=== PATIENT | female | born 1955 | race Caucasian/White ===

== ENCOUNTER → 2023-08-20 14:25 | Outpatient (REF) | payer OTHER, SELFPAY ==
[2023-08-25 14:40] LABS: Pneumococcal IgG Type 1 0.35 ug/mL; Pneumococcal IgG Type 12F 0.11 ug/mL; Pneumococcal IgG Type 14 3.17 ug/mL; Pneumococcal IgG Type 18C 0.05 ug/mL; Pneumococcal IgG Type 19F 7.84 ug/mL; Pneumococcal IgG Type 23F 0.84 ug/mL; Pneumococcal IgG Type 3 0.25 ug/mL; Pneumococcal IgG Type 4 0.73 ug/mL; Pneumococcal IgG Type 5 0.46 ug/mL; Pneumococcal IgG Type 6B 0.18 ug/mL; Pneumococcal IgG Type 7F 0.04 ug/mL; Pneumococcal IgG Type 8 0.12 ug/mL; Pneumococcal IgG Type 9N 0.14 ug/mL; Pneumococcal IgG Type 9V 0.61 ug/mL
== END ==
LOC: RAD 14:25
PROVIDERS: ATTENDING PHYSICIAN Allergy & Immunology; FAMILY PHYSICIAN Physician Assistant
DX: J18.8 Other pneumonia, unspecified organism (principal); Z87.42 Personal history of other diseases of the female genital tract; J20.9 Acute bronchitis, unspecified
CPT/HCPCS: 36415; 71046; 86317

== ENCOUNTER → 2023-09-14 08:47 | Outpatient (REF) | payer OTHER, SELFPAY ==
[2023-09-14 09:47] LABS: ALT (SGPT) 20 U/L (0-35); AST (SGOT) 19 U/L (14-36); Albumin 4.2 g/dl (3.5-5.0); Alkaline Phosphatase 128 U/L (38-126); Blood Urea Nitrogen 18 mg/dl (7-17); Carbon Dioxide 26 mmol/L (22-30); Chloride 105 mmol/L (98-107); Glucose 117 mg/dl (70-99); HDL Cholesterol 54 mg/dl; LDL Cholesterol, Calculated 111 mg/dl; Potassium 4.1 mmol/L (3.5-5.1); Sodium 138 mmol/L (135-145); Total Bilirubin 0.7 mg/dl (0.2-1.3); Total Cholesterol 192 mg/dl (50-199); Triglyceride 137 mg/dl (10-149); Very Low Density Lipoprotein 27 mg/dl (0-30); eGFR > 60.00
[2023-09-15 08:52] LABS: Glycohemoglobin (HgbA1c) 5.8 % (4.0-5.6)
== END ==
LOC: REG 08:47
PROVIDERS: ATTENDING PHYSICIAN Physician Assistant
DX: I10 Essential (primary) hypertension (principal); E78.2 Mixed hyperlipidemia; R73.09 Other abnormal glucose
CPT/HCPCS: 36415; 80053; 80061; 83036

== ENCOUNTER → 2023-11-09 14:11 | Outpatient (REF) | payer OTHER, SELFPAY | LOC: RAD 14:11 | PROVIDERS: ATTENDING PHYSICIAN Physician Assistant | DX: M25.562 Pain in left knee (principal) | CPT/HCPCS: 73564 ==

== ENCOUNTER → 2023-12-17 09:30 | Outpatient (REF) | payer OTHER, SELFPAY | LOC: MRI 3T 09:30 | PROVIDERS: ATTENDING PHYSICIAN Family Medicine | DX: M25.562 Pain in left knee (principal) | CPT/HCPCS: 73721 ==

== ENCOUNTER 2024-01-15 06:15 | Day surgery (SDC) | payer OTHER, SELFPAY ==
[2024-01-08 14:10] VITALS: BMI 31.9
[2024-01-08 14:38] LABS: Hematocrit 41.9 % (37.0-47.0); Hemoglobin 14.6 g/dL (12.0-16.0); Mean Corp Hgb Conc. 34.8 g/dL (33.0-37.0); Mean Corpuscular Hgb 33.4 pg (27.0-31.0); Mean Corpuscular Volume 95.9 fL (81.0-99.0); Mean Platelet Volume 11.3 fL (7.4-10.4); Platelet Count 220 10^3/uL (130-400); Red Blood Cell Count 4.37 10^6/uL (4.20-5.40); White Blood Cell Count 6.6 10^3/uL (4.8-10.8)
[2024-01-15] VITALS (7 sets, daily range): BP systolic 111–138; BP diastolic 66–83; BMI 31.9
[2024-01-15] MEDS: TYLENOL 1000 MG PO (06:27)
[2024-01-15] MEDS: CELEBREX 200 MG PO (06:28)
[2024-01-15] MEDS: NORMOSOL-R 1000 IV (06:29)
[2024-01-15] MEDS: MORPHINE SULFATE 1 MG IV ×4 (07:52→08:22)
== END 2024-01-15 10:01 | disposition home or self-care (01) ==
LOC: SDS 06:15
PROVIDERS: ATTENDING PHYSICIAN Specialist; FAMILY PHYSICIAN Family Medicine
DX: S83.282A Other tear of lateral meniscus, current injury, left knee, initial encounter (principal); X58.XXXA Exposure to other specified factors, initial encounter; M23.42 Loose body in knee, left knee
CPT/HCPCS: 29881; 36415; 85027; 93005

== ENCOUNTER → 2024-05-13 10:11 | Outpatient (REF) | payer OTHER, SELFPAY ==
[2024-05-13 16:15] LABS: Blood Urea Nitrogen 22 mg/dl (7-17); Calcium 9.1 mg/dl (8.4-10.2); Carbon Dioxide 24 mmol/L (22-30); Chloride 101 mmol/L (98-107); Glucose 98 mg/dl (70-99); Sodium 141 mmol/L (135-145); eGFR > 60.00
== END ==
LOC: RAD 10:11
PROVIDERS: ATTENDING PHYSICIAN Physician Assistant; FAMILY PHYSICIAN Internal Medicine Cardiovascular Disease
DX: J45.41 Moderate persistent asthma with (acute) exacerbation (principal); I50.32 Chronic diastolic (congestive) heart failure
CPT/HCPCS: 36415; 71046; 80048

== ENCOUNTER → 2024-08-17 10:05 | Outpatient (REF) | payer OTHER, SELFPAY ==
[2024-08-17 11:59] LABS: ALT (SGPT) 17 U/L (0-35); AST (SGOT) 18 U/L (14-36); Albumin 4.3 g/dl (3.5-5.0); Alkaline Phosphatase 104 U/L (38-126); Blood Urea Nitrogen 14 mg/dl (7-17); Calcium 8.9 mg/dl (8.4-10.2); Carbon Dioxide 21 mmol/L (22-30); Chloride 104 mmol/L (98-107); Glucose 97 mg/dl (70-99); HDL Cholesterol 49 mg/dl; LDL Cholesterol, Calculated 171 mg/dl; Potassium 3.7 mmol/L (3.5-5.1); Sodium 138 mmol/L (135-145); Total Bilirubin 1.1 mg/dl (0.2-1.3); Total Cholesterol 261 mg/dl (50-199); Total Protein 6.7 g/dl (6.3-8.2); Triglyceride 206 mg/dl (10-149); Very Low Density Lipoprotein 41 mg/dl (0-30); eGFR > 60.00
[2024-08-17 12:02] LABS: Glycohemoglobin (HgbA1c) 5.5 % (4.0-5.6)
[2024-08-17 12:28] LABS: TSH Reflex To Free T4 3.21 uIU/ml (0.47-4.68)
== END ==
LOC: REG 10:05
PROVIDERS: ATTENDING PHYSICIAN Physician Assistant
DX: E78.2 Mixed hyperlipidemia (principal); R73.09 Other abnormal glucose; E03.9 Hypothyroidism, unspecified
CPT/HCPCS: 36415; 80053; 80061; 83036; 84443

== ENCOUNTER → 2024-08-20 13:35 | Outpatient (REF) | payer OTHER, SELFPAY | LOC: WDC 13:35 | PROVIDERS: ATTENDING PHYSICIAN Physician Assistant | DX: Z12.31 Encounter for screening mammogram for malignant neoplasm of breast (principal) | CPT/HCPCS: 77063; 77067 ==

== ENCOUNTER → 2025-02-22 06:57 | Outpatient (REF) | payer OTHER, SELFPAY | LOC: PAVMRI 06:57 | PROVIDERS: ATTENDING PHYSICIAN Physician Assistant | DX: S49.91XA Unspecified injury of right shoulder and upper arm, initial encounter (principal) | CPT/HCPCS: 72141 ==

== ENCOUNTER → 2025-02-27 10:35 | Outpatient (REF) | payer OTHER, SELFPAY | LOC: PAVMRI 10:35 | PROVIDERS: ATTENDING PHYSICIAN Physician Assistant | DX: S49.91XA Unspecified injury of right shoulder and upper arm, initial encounter (principal) | CPT/HCPCS: 73221 ==

== ENCOUNTER → 2025-03-07 14:43 | Outpatient (REF) | payer OTHER, SELFPAY | LOC: HWRAD 14:43 | PROVIDERS: ATTENDING PHYSICIAN Physician Assistant | DX: E07.9 Disorder of thyroid, unspecified (principal) | CPT/HCPCS: 76536 ==

== ENCOUNTER → 2025-04-10 14:05 | Outpatient (REF) | payer OTHER, SELFPAY ==
[2025-04-10 15:51] LABS: TSH 4.28 uIU/ml (0.47-4.68)
[2025-04-12 15:22] LABS: Thyroglobulin Antibodies 16.9 IU/mL (0.0-4.0)
== END ==
LOC: REG 14:05
PROVIDERS: ATTENDING PHYSICIAN Nurse Practitioner Family; FAMILY PHYSICIAN Physician Assistant
DX: E04.1 Nontoxic single thyroid nodule (principal)
CPT/HCPCS: 36415; 84439; 84443; 86376; 86800

== ENCOUNTER → 2025-06-07 10:28 | Outpatient (REF) | payer OTHER, SELFPAY ==
[2025-06-07 12:01] LABS: Blood Urea Nitrogen 20 mg/dl (7-17); Calcium 9.0 mg/dl (8.4-10.2); Carbon Dioxide 30 mmol/L (22-30); Chloride 99 mmol/L (98-107); Glucose 84 mg/dl (70-99); HDL Cholesterol 80 mg/dl; LDL Cholesterol, Calculated 125 mg/dl; Potassium 4.0 mmol/L (3.5-5.1); Sodium 137 mmol/L (135-145); Very Low Density Lipoprotein 37 mg/dl (0-30); eGFR > 60.00
== END ==
LOC: REG 10:28
PROVIDERS: ATTENDING PHYSICIAN Internal Medicine Cardiovascular Disease; FAMILY PHYSICIAN Family Medicine
DX: I50.32 Chronic diastolic (congestive) heart failure (principal); E78.2 Mixed hyperlipidemia
CPT/HCPCS: 36415; 80048; 80061; 83880; 93306